=== PATIENT | female | born 1995 | race Caucasian/White ===

== ENCOUNTER 2020-09-16 16:13 | Emergency (ER) | payer OTHER ==
[~2020-09-16] VITALS: Ht 157.5 cm; Wt 59.4 kg
[2020-09-16] MEDS ORDERED: PRENA1 CHEW TA1.4 MG (16:25)
[2020-09-16] MEDS ORDERED: MONTELUKAST SODI4 M1 (16:25)
[2020-09-16] MEDS ORDERED: ZYRTEC10 M3 (16:25)
[2020-09-16] MEDS ORDERED: VALACYCLOVIR500 MG (16:26)
== END 2020-09-16 20:05 | disposition home or self-care (01) ==
LOC: ER 16:13
DX: R07.89 Other chest pain (principal)

== ENCOUNTER 2020-12-04 15:25 | Inpatient (IN) | payer OTHER ==
[~2020-12-04] VITALS: Ht 160 cm; Wt 3.2 kg
[~2020-12-04 15:25] MED LIST: MONTELUKAST SODI4 M1; PRENA1 CHEW TA1.4 MG; VALACYCLOVIR500 MG; ZYRTEC10 M3
[2020-12-07] MEDS ORDERED: SIMETHICONE80 MG PO (10:05)
[2020-12-07] MEDS ORDERED: IBU800 MG PO (10:05)
[2020-12-07] MEDS ORDERED: COLACE100 MG PO (10:05)
== END 2020-12-07 12:49 | disposition home or self-care (01) | DRG 787 ==
LOC: LDR 15:25 → OB/GYN 15:25
PROVIDERS: ADMIT Specialist; ATTEND Specialist
PROC: 4A1HXFZ Monitoring of Products of Conception, Cardiac Rhythm, External Approach (ICD-10-PCS; 2020-12-04)
PROC: 10D00Z1 Extraction of Products of Conception, Low, Open Approach (ICD-10-PCS; principal; 2020-12-04 16:00)
DX: O82 Encounter for cesarean delivery without indication (principal); O98.32 Other infections with a predominantly sexual mode of transmission complicating childbirth; Z37.0 Single live birth; Z3A.37 37 weeks gestation of pregnancy; Z20.822 Contact with and (suspected) exposure to COVID-19